=== PATIENT | female | born 1960 | race Two or more races ===

== ENCOUNTER 2020-12-07 10:59 | Emergency (ER) | payer BC, MEDICARE ==
[~2020-12-07] VITALS: Ht 167.6 cm; Wt 120.0 kg
[~2020-12-07 10:59] MED LIST: ACETYLCHOLINE CHLORIDE INTRAOCULAR SOLUTION 1:100 ELECTROLYTE DILUENT IO ONE; BALANCED SALT IRRIG SOLN 15ML ONE; BUPIVACAINE HCL/PF 0.75% (7.5MG/ML) 10ML ONE; CIPROFLOXACIN 0.3% OPHTH SOLN 2.5ML ONE; LIDOCAINE HCL 2%/EPINEPHRINE 1:100,000 20 ML VIAL INFIL ONE; NEO/POLYMYX B SULF/DEXAMETH OPHTH OINT 3.5GM ONE; PREDNISOLONE ACETATE 1% OPHTH DROPS 5ML ONE; TETRACAINE 0.5% OPHTH DROPS 4ML ONE
[2020-12-07] MEDS ORDERED: ACETAZOLAMIDE SODIUM 500MG/VIAL IV ONE (11:30)
[2020-12-07 12:22] LABS: BASOPHILS % 1.3 % (0.0-2.0); EOSINOPHILS % 1.4 % (0.0-5.0); HEMATOCRIT. 39.5 % (36.0-48.0); LYMPHOCYTES % 33.7 % (20.0-50.0); MEAN CORPUSCULAR HEMOGLOBIN 26.4 pg (28.0-32.0); MEAN PLATELET VOLUME 8.7 fl (7.4-10.4); MONOCYTES % 7.9 % (2.0-8.0); NEUTROPHILS % 55.7 % (40.0-76.0); PLATELET 291 x1000/uL (130-400); RED BLOOD CELL COUNT 4.93 mill/uL (4.2-5.4); RED CELL DISTRIBUTION WIDTH 15.5 % (11.6-14.6)
[2020-12-07 12:23] VITALS: BP 154/83
[2020-12-07 12:28] LABS: CHLORIDE 107 mEq/L (98-107)
[2020-12-07 13:00] LABS: PARTIAL THROMBOPLASTIN TIME 25.8 sec (23.4-31.0); PROTHROMBIN TIME 11.2 sec (9.6-11.0)
[2020-12-07] MEDS ORDERED: ALPRAZOLAM 0.5 MG TABLET PO ONE (13:00)
[2020-12-07 13:12] LABS: CLARITY URINE CLEAR (CLEAR); COLOR URINE YELLOW (YELLOW); KETONES URINE NEGATIVE (NEGATIVE); LEUKOCYTE ESTERASE URINE NEGATIVE (NEGATIVE); NITRITE URINE NEGATIVE (NEGATIVE); OCCULT BLOOD URINE NEGATIVE (NEGATIVE); PROTEIN URINE NEGATIVE (NEGATIVE); SPECIFIC GRAVITY URINE 1.015 (1.005-1.030); UROBILINOGEN URINE 0.2 E.U./dL (0.2-1.0)
[2020-12-07] MEDS ORDERED: LIDOCAINE HCL/PF 1% 10 MG/ML 5ML VIAL ONE (13:31)
[2020-12-07] MEDS ORDERED: MIDAZOLAM HCL 2 MG/2 ML VIAL ONE (13:31)
[2020-12-07] MEDS ORDERED: PROPOFOL 200MG/20ML VIAL IV ONE (13:31)
[2020-12-07] MEDS ORDERED: FENTANYL CITRATE/PF 50MCG/ML 2ML VIAL ONE (13:31)
[2020-12-07] MEDS ORDERED: KETOROLAC 30MG/ML VIAL ONE (14:28)
[2020-12-07] MEDS ORDERED: THYR120T2 PO (16:12)
[2020-12-07] MEDS ORDERED: ALBU18HF2 IH (16:12)
[2020-12-07] MEDS ORDERED: ALPR1TAB2 PO (16:12)
== END 2020-12-07 13:20 | disposition admitted as inpatient to this hospital (09) ==
LOC: ER 10:59 → CANBEDREQ 20:30
DX: H40.1111 Primary open-angle glaucoma, right eye, mild stage (principal); J45.909 Unspecified asthma, uncomplicated; I49.9 Cardiac arrhythmia, unspecified; Z20.822 Contact with and (suspected) exposure to COVID-19; Z88.8 Allergy status to other drugs, medicaments and biological substances; Z86.39 Personal history of other endocrine, nutritional and metabolic disease; Z98.890 Other specified postprocedural states
CPT/HCPCS: 36415; 66170; 71045; 80053; 81003; 85025; 85610; 85730; 87426; 93005; 96374; 99285; J1120; J1885; J2250; J2704; J3010; J3490; 99284